=== PATIENT | female | born 1985 | race Caucasian/White ===

== ENCOUNTER 2023-07-05 13:13 | Outpatient (CLI) | payer OTHER, MEDICAID, SELFPAY | END 2023-07-05 13:14 | disposition home or self-care (01) | LOC: NFLDREF 07-17 12:37 | PROVIDERS: PCP Internal Medicine; Referring Provider Internal Medicine; Visit Provider Internal Medicine | DX: F98.8 Other specified behavioral and emotional disorders with onset usually occurring in childhood and adolescence (principal); Z13.6 Encounter for screening for cardiovascular disorders | CPT/HCPCS: 80053; 80061 ==

== ENCOUNTER 2024-06-07 13:19 | Emergency (ER) | payer OTHER, SELFPAY ==
[2024-06-07 13:37] VITALS: BP 106/69; PULSE 91; RESP 18; TEMP 36.6; O2SAT 98; BMI 26.6
--- NOTE | 2024-06-07 14:02 | ED.GENADULT ---
HPI - General Adult General Chief complaint: Skin/Abscess/Foreign Body Stated complaint: left ear infection, R index finger infected? Time Seen by Provider: 06/07/24 13:42 Source: patient Mode of arrival: ambulatory Limitations: no limitations History of Present Illness HPI narrative: 39-year-old female presenting today with left-sided ear pain going on for about 5 weeks. Patient states she was diagnosed with otitis media put on amoxicillin for 2 weeks at the beginning of May. She did not notice any difference in her symptoms. Hearing is intact. She is also concerned that she has an infection at the tip of the right pointer finger. Present for a few days. She denies any fevers or systemic symptoms. 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 Related Data Previous Rx's ?Medication ?Instructions ?Recorded amoxicillin 500 mg tablet 500 mg PO TID #21 tabs 07/09/23 dextroamphetamine-amphetamine 10 10 mg PO QDAY #30 tabs 05/05/24 mg tablet (Adderall) dextroamphetamine-amphetamine ER 25 mg PO QAM #30 caps 05/05/24 25 mg 24hr capsule,extend release (Adderall XR) cefdinir 300 mg capsule 300 mg PO BID 7 days #14 caps 06/07/24 doxycycline hyclate 100 mg capsule 100 mg PO BID 7 days #14 caps 06/07/24 Allergies Allergy/AdvReac Type Severity Reaction Status Date / Time amoxicillin (From Augmentin) Allergy Intermediate Hives Verified 07/09/23 09:49 clavulanic acid (From Allergy Intermediate Hives Verified 07/09/23 09:49 Augmentin) Review of Systems Status of ROS: Reports: 10 or more systems reviewed and unremarkable except as noted in History and below [facility] Medical History Otitis media ?H66.90 - Otitis media, unspecified, unspecified ear (ICD-10) Surgical History History of tubal ligation ?Z98.51 - Tubal ligation status (ICD-10) History of hysterectomy ?Z90.710 - Acquired absence of both cervix and uterus (ICD-10) Exam Narrative: Exam Narrative: Well-nourished well-developed patient in no acute distress. Alert and oriented. Answers questions appropriately. Mood and affect are appropriate. Thoughts are goal oriented and rational. No tangential or magical thinking noted. Patient speaks in full sentences without needing to catch her breath. HEENT: Normocephalic atraumatic. Pupils are equally round reactive to light. Extraocular muscles are intact. Conjunctivae are moist without any icterus noted. Moist mucous membranes. Left TM is dull, significant amount of purulent drainage behind the membrane - unclear if there is a rupture or not. Extremities: Paronychia present on the 2nd digit. With erythema and swelling around the nail bed. No erythema or swelling on the pad of the finger. Skin: Well perfused. Const: Vital Signs, click to edit/add: Vital Signs - 24 hr 06/07/24 13:37 Temperature 98 F Pulse Rate [Pulse Oximeter] 91 Respiratory Rate 18 Blood Pressure [Le ft Upper Arm] 106/69 Pulse Oximetry 98 Oxygen Delivery Me thod Room Air Course Course ED Course: Found the soft test, most fluctuant area around the nail bed of the 2nd digit on the right hand and attempted to I&D the area with an 11 blade. No purulent matter was extracted. Vital Signs Vital signs: Initial Vital Signs Temperature 98 F 06/07/24 13:37 Temperature Source Temporal Artery Scan 06/07/24 13:37 Pulse Rate 91 06/07/24 13:37 Pulse Rhythm Regular 06/07/24 13:37 Respiratory Rate 18 06/07/24 13:37 Blood Pressure 106/69 06/07/24 13:37 Blood Pressure Mean 81 06/07/24 13:37 Blood Pressure Position Sitting 06/07/24 13:37 Pulse Oximetry 98 06/07/24 13:37 Oxygen Delivery Method Room Air 06/07/24 13:37 Vital Signs Temperature 98 F 06/07/24 13:37 Pulse Rate 91 06/07/24 13:37 Respiratory Rate 18 06/07/24 13:37 Blood Pressure 106/69 06/07/24 13:37 Pulse Oximetry 98 06/07/24 13:37 Oxygen Delivery Method Room Air 06/07/24 13:37 Temperature 98 F 06/07/24 13:37 Pulse Rate 91 06/07/24 13:37 Respiratory Rate 18 06/07/24 13:37 Blood Pressure 106/69 06/07/24 13:37 Pulse Oximetry 98 06/07/24 13:37 Oxygen Delivery Method Room Air 06/07/24 13:37 Medical Decision Making MDM Narrative Medical decision making narrative: 39-year-old female paronychia and otitis media. Patient will need to see ENT for a follow-up given the significant amount of purulence noted in today's examination. Will put her on cefdinir for her otitis media and also doxycycline for her hand. Discharge Plan Discharge Clinical Impression: Otitis media, Paronychia Patient Disposition: Home, Self-Care Condition: Stable Additional Instructions: Start both antibiotics today. The cefdinir is for the ear and the doxycycline as for your hand. As far as your ear - you will need to call ENT thing Saturday morning to schedule a follow-up appointment. As far as your finger - you should start to see a difference in the next 48 hours. If it is getting worse instead of better it may need to be drained. You can follow-up with your primary care provider to have this done or return to the emergency room. Prescriptions: New cefdinir 300 mg capsule 300 mg PO BID 7 Days Qty: 14 0RF doxycycline hyclate 100 mg capsule 100 mg PO BID 7 Days Qty: 14 0RF No Action amoxicillin 500 mg tablet 500 mg PO TID Qty: 21 0RF dextroamphetamine-amphetamine [Adderall] 10 mg tablet 10 mg PO QDAY Qty: 30 0RF dextroamphetamine-amphetamine [Adderall XR] 25 mg capsule,extended release 24hr 25 mg PO QAM Qty: 30 0RF Follow Up/Referrals: Patrick Sandhu MD [Primary Care Provider] - Stand Alone Forms: [employer] Info Instructions
== END 2024-06-07 14:18 | disposition home or self-care (01) ==
LOC: ED 14:16
PROVIDERS: Emergency Provider Family Medicine; PCP Internal Medicine
DX: H66.92 Otitis media, unspecified, left ear (principal); L03.011 Cellulitis of right finger
CPT/HCPCS: 10060; 99283; 99284

== ENCOUNTER 2024-11-24 08:48 | Outpatient (CLI) | payer OTHER, SELFPAY | END 2024-11-24 08:49 | disposition home or self-care (01) | LOC: NFLDREF 11-30 17:47 | PROVIDERS: PCP Internal Medicine; Referring Provider Internal Medicine; Visit Provider Internal Medicine | DX: Z13.228 Encounter for screening for other metabolic disorders (principal); Z13.6 Encounter for screening for cardiovascular disorders | CPT/HCPCS: 80053; 80061 ==